=== PATIENT | male | born 1955 | race Caucasian/White ===

== ENCOUNTER 2020-12-24 11:59 | Emergency (ER) | payer OTHER ==
[~2020-12-24] VITALS: Ht 165.1 cm; Wt 75.0 kg
[~2020-12-24 11:59] MED LIST: ALLO100T PO; ASPI-1497 PO; ATEN-42 PO; IBUP-2030 PO; PRAV20TA57 PO
[2020-12-24] MEDS ORDERED: KETOROLAC 60MG/2ML VIAL IM ONE (12:30)
[2020-12-24 12:48] VITALS: BP 159/89
[2020-12-24] MEDS ORDERED: T3 PO (13:31)
[2020-12-24] MEDS ORDERED: IBUP-2028 MT (13:31)
== END 2020-12-24 13:47 | disposition home or self-care (01) ==
LOC: ER 11:59
DX: M79.661 Pain in right lower leg (principal); I10 Essential (primary) hypertension; E11.9 Type 2 diabetes mellitus without complications; E78.5 Hyperlipidemia, unspecified; Z86.73 Personal history of transient ischemic attack (TIA), and cerebral infarction without residual deficits
CPT/HCPCS: 93971; 96372; 99284; J1885

== ENCOUNTER 2021-10-31 14:06 | Emergency (ER) | payer MEDICARE, MEDICAID ==
[~2021-10-31] VITALS: Ht 160 cm; Wt 73.0 kg
[~2021-10-31 14:06] MED LIST changes: +IBUP-2028 MT; +T3 PO
[2021-10-31 14:17] VITALS: BP 133/88
[2021-10-31] MEDS ORDERED: ACETAMINOPHEN 325MG TABLET PO ONE (15:00)
[2021-10-31] MEDS ORDERED: ACET-2708 MT (16:22)
== END 2021-10-31 16:35 | disposition home or self-care (01) ==
LOC: ER 14:06
DX: S09.90XA Unspecified injury of head, initial encounter (principal); E11.9 Type 2 diabetes mellitus without complications; I10 Essential (primary) hypertension; Z79.899 Other long term (current) drug therapy; Z98.890 Other specified postprocedural states; X58.XXXA Exposure to other specified factors, initial encounter; Y93.89 Activity, other specified; Y92.89 Other specified places as the place of occurrence of the external cause; Y99.8 Other external cause status
CPT/HCPCS: 99284

== ENCOUNTER 2021-12-01 15:19 | Emergency (ER) | payer MEDICARE, OTHER ==
[~2021-12-01] VITALS: Ht 160 cm; Wt 73.0 kg
[~2021-12-01 15:19] MED LIST changes: +ACET-2708 MT
[2021-12-01] MEDS ORDERED: CEFTRIAXONE SODIUM 500 MG/VIAL IM ONE (17:00)
[2021-12-01] MEDS ORDERED: KETOROLAC 60MG/2ML VIAL IM ONE (17:00)
[2021-12-01 17:23] LABS: BASOPHILS % 1.1 % (0.0-2.0); EOSINOPHILS % 1.7 % (0.0-5.0); HEMOGLOBIN. 13.3 g/dL (14.0-18.0); LYMPHOCYTES % 9.3 % (20.0-50.0); MEAN CORPUSCULAR HEMOGLOBIN 32.7 pg (28.0-32.0); MEAN CORPUSCULAR VOLUME 98.5 fL (80.0-94.0); MEAN PLATELET VOLUME 8.9 fl (7.4-10.4); NEUTROPHILS % 79.9 % (40.0-76.0); PLATELET 260 x1000/uL (130-400); RED BLOOD CELL COUNT 4.06 mill/uL (4.7-6.1); RED CELL DISTRIBUTION WIDTH 14.4 % (11.6-14.6)
[2021-12-01 17:31] LABS: CHLORIDE 99 mEq/L (98-107)
[2021-12-01 17:31] LABS: CLARITY URINE CLEAR (CLEAR); COLOR URINE YELLOW (YELLOW); KETONES URINE TRACE (NEGATIVE); LEUKOCYTE ESTERASE URINE 1+ (NEGATIVE); NITRITE URINE NEGATIVE (NEGATIVE); OCCULT BLOOD URINE NEGATIVE (NEGATIVE); PROTEIN URINE NEGATIVE (NEGATIVE); SPECIFIC GRAVITY URINE 1.023 (1.005-1.030)
[2021-12-01] MEDS ORDERED: CIPR500T5 MT ×2 (20:29→20:32)
[2021-12-01] MEDS ORDERED: DOXY100C5 MT ×2 (20:29→20:32)
[2021-12-01] MEDS ORDERED: IBUP-2028 MT ×2 (20:29→20:32)
[2021-12-01 20:45] VITALS: BP 125/73
[2021-12-05 07:08] LABS: NEISSERIA GONORRHOEAE NAA Negative (Negative)
== END 2021-12-01 21:08 | disposition home or self-care (01) ==
LOC: ER 15:19
DX: N39.0 Urinary tract infection, site not specified (principal); I10 Essential (primary) hypertension; E78.00 Pure hypercholesterolemia, unspecified; E11.9 Type 2 diabetes mellitus without complications; Z79.82 Long term (current) use of aspirin; Z79.899 Other long term (current) drug therapy; Z98.890 Other specified postprocedural states
CPT/HCPCS: 36415; 74176; 76700; 80053; 81003; 82962; 83690; 85025; 87491; 87591; 96372; 99284; J0696; J1885

== ENCOUNTER 2021-12-23 11:05 | Emergency (ER) | payer MEDICARE, OTHER ==
[~2021-12-23] VITALS: Ht 160 cm; Wt 75.0 kg
[~2021-12-23 11:05] MED LIST changes: +CIPR500T5 MT; +DOXY100C5 MT
[2021-12-23 13:26] LABS: CLARITY URINE CLEAR (CLEAR); COLOR URINE YELLOW (YELLOW); KETONES URINE NEGATIVE (NEGATIVE); LEUKOCYTE ESTERASE URINE NEGATIVE (NEGATIVE); NITRITE URINE NEGATIVE (NEGATIVE); OCCULT BLOOD URINE NEGATIVE (NEGATIVE); PH URINE 5.5 (4.5-8.0); PROTEIN URINE TRACE (NEGATIVE); SPECIFIC GRAVITY URINE 1.019 (1.005-1.030)
[2021-12-23 14:46] VITALS: BP 142/89
== END 2021-12-23 14:47 | disposition home or self-care (01) ==
LOC: ER 11:05
DX: N50.819 Testicular pain, unspecified (principal); E11.9 Type 2 diabetes mellitus without complications; E78.00 Pure hypercholesterolemia, unspecified; I10 Essential (primary) hypertension; Z85.038 Personal history of other malignant neoplasm of large intestine; Z90.49 Acquired absence of other specified parts of digestive tract; Z92.21 Personal history of antineoplastic chemotherapy; Z92.3 Personal history of irradiation; Z79.82 Long term (current) use of aspirin
CPT/HCPCS: 76870; 81003; 93976; 99284

== ENCOUNTER 2022-02-19 10:35 | Emergency (ER) | payer MEDICARE, OTHER ==
[~2022-02-19] VITALS: Ht 160 cm; Wt 73.0 kg
[2022-02-19] MEDS ORDERED: ACETAMINOPHEN 325MG TABLET PO ONE (10:45)
[2022-02-19] MEDS ORDERED: ACET-2708 MT (11:22)
[2022-02-19 11:52] VITALS: BP 131/87
== END 2022-02-19 11:52 | disposition home or self-care (01) ==
LOC: ER 10:35
DX: M25.511 Pain in right shoulder (principal); I10 Essential (primary) hypertension; E78.5 Hyperlipidemia, unspecified; Z85.038 Personal history of other malignant neoplasm of large intestine; Z90.49 Acquired absence of other specified parts of digestive tract
CPT/HCPCS: 73030; 99283

== ENCOUNTER → 2022-03-09 | Outpatient (CLI) | payer MEDICARE, MEDICAID | END | disposition home or self-care (01) | LOC: CT 07:40 | PROVIDERS: ATTEND Internal Medicine Hematology & Oncology | DX: C20 Malignant neoplasm of rectum (principal); K76.89 Other specified diseases of liver | CPT/HCPCS: 71260; 74177 ==

== ENCOUNTER → 2022-06-22 | Outpatient (CLI) | payer MEDICARE, MEDICAID ==
[~2022-06-22] MED LIST changes: +BARIUM SULFATE 450ML ORAL SUSP ONE; +IOHEXOL-300 100 ML BOTTLE ONE
== END | disposition home or self-care (01) ==
LOC: CT 08:31
PROVIDERS: ATTEND Internal Medicine Hematology & Oncology
DX: C78.7 Secondary malignant neoplasm of liver and intrahepatic bile duct (principal); C20 Malignant neoplasm of rectum; N40.0 Benign prostatic hyperplasia without lower urinary tract symptoms; K57.30 Diverticulosis of large intestine without perforation or abscess without bleeding; K76.89 Other specified diseases of liver; J98.11 Atelectasis; I70.90 Unspecified atherosclerosis
CPT/HCPCS: 74177; Q9967

== ENCOUNTER 2023-04-14 18:10 | Emergency (ER) | payer MEDICARE, MEDICAID ==
[~2023-04-14] VITALS: Ht 175.3 cm; Wt 59.0 kg
[~2023-04-14 18:10] MED LIST changes: -ACET-2708 MT; +AMLO5TAB88 PO; -ATEN-42 PO; -BARIUM SULFATE 450ML ORAL SUSP ONE; -CIPR500T5 MT; -DOXY100C5 MT; -IBUP-2028 MT; -IBUP-2030 PO; -IOHEXOL-300 100 ML BOTTLE ONE; -T3 PO; +VANJ5 PO
[2023-04-14 18:18] VITALS: BP 107/76
[2023-04-14] MEDS ORDERED: LOPERAMIDE HCL 2MG CAPSULE PO ONE (20:45)
[2023-04-14 21:22] LABS: CHLORIDE 93 mEq/L (98-107)
[2023-04-14 21:25] LABS: BASOPHILS % 0.4 % (0.0-2.0); EOSINOPHILS % 1.8 % (0.0-5.0); HEMATOCRIT. 34.6 % (42.0-52.0); HEMOGLOBIN. 11.7 g/dL (14.0-18.0); MEAN CORPUSCULAR HEMOGLOBIN 29.9 pg (28.0-32.0); MEAN CORPUSCULAR VOLUME 88.7 fL (80.0-94.0); MONOCYTES % 6.3 % (2.0-8.0); NEUTROPHILS % 64.5 % (40.0-76.0); PLATELET 282 x1000/uL (130-400); RED CELL DISTRIBUTION WIDTH 14.6 % (11.6-14.6)
[2023-04-14] MEDS ORDERED: POTASSIUM CHLORIDE 20MEQ TABLET SR PO ONE (21:45)
[2023-04-14] MEDS ORDERED: IMOD MT (22:22)
== END 2023-04-14 22:52 | disposition home or self-care (01) ==
LOC: ER 18:10
DX: E86.0 Dehydration (principal); E87.6 Hypokalemia; R19.7 Diarrhea, unspecified; E11.9 Type 2 diabetes mellitus without complications; E78.00 Pure hypercholesterolemia, unspecified; I10 Essential (primary) hypertension; Z85.038 Personal history of other malignant neoplasm of large intestine; Z79.82 Long term (current) use of aspirin
CPT/HCPCS: 36415; 80053; 85025; 99283

== ENCOUNTER → 2023-06-06 | Outpatient (CLI) | payer MEDICARE, MEDICAID ==
[~2023-06-06] MED LIST changes: +BARIUM SULFATE 450ML ORAL SUSP ONE; +IMOD MT; +IOHEXOL-300 100 ML BOTTLE ONE
== END | disposition home or self-care (01) ==
LOC: CT 08:32
PROVIDERS: ATTEND Internal Medicine Hematology & Oncology
DX: C20 Malignant neoplasm of rectum (principal); N40.0 Benign prostatic hyperplasia without lower urinary tract symptoms; I70.0 Atherosclerosis of aorta
CPT/HCPCS: 71260; 74177; Q9967

== ENCOUNTER 2023-08-24 08:35 | Emergency (ER) | payer MEDICARE, MEDICAID ==
[~2023-08-24] VITALS: Ht 167.6 cm; Wt 55.0 kg
[~2023-08-24 08:35] MED LIST changes: -BARIUM SULFATE 450ML ORAL SUSP ONE; -IOHEXOL-300 100 ML BOTTLE ONE
[2023-08-24] MEDS ORDERED: LIDOCAINE HCL/EPINEPHRINE 1%-EPI 1:100,000 20 ML VIAL INFIL ONE (08:45)
[2023-08-24] MEDS ORDERED: TETANUS, DIPHTHERIA, PERTUSSIS VAC/PF 0.5ML (>10YR OLD) IM ONE (08:45)
[2023-08-24 08:50] VITALS: O2SAT 99
[2023-08-24 10:25] VITALS: BP 129/61; PULSE 74; RESP 18; TEMP 97.9
== END 2023-08-24 10:26 | disposition home or self-care (01) ==
LOC: ER 09:11
DX: S01.81XA Laceration without foreign body of other part of head, initial encounter (principal); T14.8XXA Other injury of unspecified body region, initial encounter; I10 Essential (primary) hypertension; E78.00 Pure hypercholesterolemia, unspecified; E11.9 Type 2 diabetes mellitus without complications; Z98.890 Other specified postprocedural states; Y04.0XXA Assault by unarmed brawl or fight, initial encounter; Y93.89 Activity, other specified; Y92.89 Other specified places as the place of occurrence of the external cause; Y99.8 Other external cause status
CPT/HCPCS: 99283; 90715; 12013; 90471; J3490

== ENCOUNTER 2023-09-08 11:59 | Emergency (ER) | payer MEDICAID, MEDICARE ==
[~2023-09-08] VITALS: Ht 162.6 cm; Wt 59.0 kg
[2023-09-08 12:35] VITALS: BP 103/66; O2SAT 96
[2023-09-08] MEDS ORDERED: ACET-2708 MT (12:50)
[2023-09-08] MEDS ORDERED: ACETAMINOPHEN 325MG TABLET PO ONE (13:00)
[2023-09-08 13:08] VITALS: PULSE 72; RESP 15; TEMP 97.9
== END 2023-09-08 13:09 | disposition home or self-care (01) ==
LOC: ER 11:59
DX: S01.81XD Laceration without foreign body of other part of head, subsequent encounter (principal); X58.XXXD Exposure to other specified factors, subsequent encounter; E11.9 Type 2 diabetes mellitus without complications; E78.00 Pure hypercholesterolemia, unspecified; I10 Essential (primary) hypertension; Z79.899 Other long term (current) drug therapy
CPT/HCPCS: 99282

== ENCOUNTER 2023-12-08 15:45 | Emergency (ER) | payer MEDICARE, MEDICAID ==
[~2023-12-08] VITALS: Ht 160 cm; Wt 62.0 kg
[~2023-12-08 15:45] MED LIST changes: +ACET-2708 MT
[2023-12-08 15:50] VITALS: BP 99/50; PULSE 80; RESP 16; TEMP 98.9; O2SAT 98
[2023-12-08] MEDS ORDERED: DOXY100C5 MT (18:52)
== END 2023-12-08 19:11 | disposition home or self-care (01) ==
LOC: ER 15:45
DX: L08.9 Local infection of the skin and subcutaneous tissue, unspecified (principal); Z85.9 Personal history of malignant neoplasm, unspecified; Z98.890 Other specified postprocedural states
CPT/HCPCS: 99283

== ENCOUNTER → 2024-04-28 | Outpatient (CLI) | payer MEDICARE, MEDICAID ==
[~2024-04-28] MED LIST changes: +BARIUM SULFATE 450ML ORAL SUSP ONE; +DOXY100C5 MT; +IOHEXOL-300 100 ML BOTTLE ONE
== END | disposition home or self-care (01) ==
LOC: CT 07:55
PROVIDERS: ATTEND Internal Medicine Hematology & Oncology
DX: C20 Malignant neoplasm of rectum (principal); I70.0 Atherosclerosis of aorta; K76.89 Other specified diseases of liver; R16.0 Hepatomegaly, not elsewhere classified; M47.816 Spondylosis without myelopathy or radiculopathy, lumbar region
CPT/HCPCS: 71260; 74177; Q9967